=== PATIENT | female | born 1990 | race Caucasian/White ===

== ENCOUNTER 2020-05-18 13:01 | Outpatient (CLI) | payer OTHER, BC, SELFPAY ==
--- NOTE | ~2020-05-18 | XR_ITS ---
XR_CERV2-3V_CR DATE: 05/18/2020 13:51 INDICATION: Neck pain TECHNIQUE: AP, open-mouth, lateral, swimmer views COMPARISON: None FINDINGS: There is straightening of the cervical spine. C1 and C2 are normally aligned and the odonto id process is intact. No fracture or dislocation or locked facet or prevertebral soft tissue swelling is detected. The cervical interspaces appear relatively preserved. IMPRESSION: Straightening Reviewed, dictated and finalized at Location [facility]. Reviewed, dictated and finalized at location B. IMPRESSION: Straightening
--- NOTE | ~2020-05-18 | XR_ITS ---
XR lumbar spine 2-3V DATE: 05/18/2020 13:51 INDICATION: Low back pain TECHNIQUE: AP, lateral, coned lateral lumbosacral views COMPARISON: None FINDINGS: Wavy endplates of some thoracic and lumbar vertebrae, suggesting Scheuermann's disease (ado lescent kyphosis). Minimal degenerative spurring at T12-L1. There is a transitional lumbosacral presumably S1 vertebra with sacralization and pseudoarthrosis on the left. Transitional vertebra may be a source of chronic low back pain. No fracture or bone destruction or spondylolisthesis. Lumbar interspaces appear relatively preserved. The sacroiliac joints appear normal. There is a prominent amount of fecal material in the colon. 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
== END 2020-05-18 13:02 | disposition home or self-care (01) ==
LOC: CHSLAB 13:06 → CHSIMG 13:07
PROVIDERS: PCP Family Medicine; Visit Provider Family Medicine
DX: M54.2 Cervicalgia (principal); M54.5 Low back pain
CPT/HCPCS: 72040; 72100

== ENCOUNTER 2020-12-27 08:53 | Outpatient (CLI) | payer BC, SELFPAY ==
--- NOTE | ~2020-12-27 | MR_ITS ---
EXAMINATION: MR lumbar spine wo con DATE: 12/27/2020 09:30 INDICATION: Lumbar radiculopathy. TECHNIQUE: Magnetic resonance imaging (MRI) of the lumbar spine was performed without intravenous con trast. Sequences included sagittal T2-weighted FSE, sagittal T2-weighted FS FSE, sagittal T1-weighted FSE, and axial T2-weighted FSE. COMPARISON: Lumbar spine radiographs 05/18/2020 FINDINGS: There is 4 degrees levocurvature of lumbar spine. There are Schmorl's nodes at all levels. There is mildly decreased disc height at L4-L5. The distal spinal cord signal intensity is normal. Th e conus medullaris is at T12. The following disc levels are specifically discussed: L1-L2: The disc does not extend beyond the endplate margin. There is mild right facet joint osteoarth ritis. There is no neural foraminal stenosis. There is no central canal stenosis. L2-L3: The disc does not extend beyond the endplate margin. There is mild bilateral facet joint osteo arthritis. There is no neural foraminal stenosis. There is no central canal stenosis. L3-L4: The disc does not extend beyond the endplate margin. There is mild bilateral facet joint osteo arthritis. There is no neural foraminal stenosis. There is no central canal stenosis. L4-L5: The disc is bulging and has an annular fissure. There is mild bilateral facet joint osteoarthr itis. There is mild bilateral neural foraminal stenosis. There is mild central canal stenosis. L5-S1: The disc does not extend beyond the endplate margin. There is mild bilateral facet joint osteo arthritis. There is no neural foraminal stenosis. There is no central canal stenosis. IMPRESSION: 1. Mild lumbar spondylosis. Reviewed, dictated and finalized at location A. IMPRESSION: 1. Mild lumbar spondylosis.
== END 2020-12-27 08:54 ==
PROVIDERS: PCP Family Medicine; Visit Provider Family Medicine
DX: M47.27 Other spondylosis with radiculopathy, lumbosacral region (principal); M48.07 Spinal stenosis, lumbosacral region; M51.47 Schmorl's nodes, lumbosacral region
CPT/HCPCS: 72148

== ENCOUNTER 2025-01-06 00:22 | Day surgery (SDC) | payer OTHER, SELFPAY ==
[2024-12-28 13:45] VITALS: BMI 41.0
--- NOTE | 2024-12-28 13:53 | SUR.PREOP ---
Report to the Outpatient Waiting Room, entrance under the green pavilion located off [facility], at time 0900 on date 01/06/25. Planned Procedure Time: 1100. Time changes happen often and if your time is changed the preop area will call you the afternoon before. - You and your visitor will be asked to self-screen and do not enter if you have any COVID symptoms. Please call surgeon if you need to reschedule. - A mask is optional within the hospital at this time. Patients may have clear liquids (water, carbonated beverages, clear teas, apple juice) until 3 hours prior to surgery with a maximum of 20 ounces. - No food from midnight until time of surgery and no smoking, or chewing tobacco (or any form of nicotine). No chewing gum, candy or mints. - Infants may have breast milk until 4 hours before surgery, infant formula 6 hours prior to surgery. - Children will be allowed to drink immediately following surgery.? If applicable, please bring a bottle or sippy cup to assist with drinking. Juice, water, soda, and popsicles are readily available.? For infants on formula, please bring formula the day of surgery.? Pacifiers are allowed. Take only the following medications with a SIP of water on the morning of surgery: N/A DO NOT STOP ANY OF YOUR OTHER PRESCRIPTION MEDICATIONS PRIOR TO SURGERY EXCEPT THE FOLLOWING Hold all vitamins and supplements for 3 days per anesthesiologist. Medications to discontinue per physician N/A Date to take last dose Please no make-up, nail syriac, hairspray, perfume, deodorant, or body powder the day of surgery.? No jewelry (including any body piercings) or valuables the day of surgery, leave them at home.? Please take a shower or bath the night before, or the morning of, surgery with an antibacterial soap.? Wear comfortable, loose fitting clothing.? Children are encouraged to wear pajamas. - Jewelry must be removed prior to entering the operating room.? Rings and piercings that are not removed may be cut off. - The hospital will not accept responsibility for valuables.? - Please leave all valuables, including medications, at home the day of surgery. If you are going home after surgery, a licensed van driver must drive you home.? - NO public transportation without another adult if you receive anesthesia. - We recommend that an adult stay with you for 24 hours following discharge. - We also recommend that you do not drive, make important decision, drink alcoholic beverages, or take any drugs that were not prescribed by your health care provider for at least 24 hours after your discharge time. For Pediatric surgeries, we recommend two adults accompany the child home. Follow any additional instructions given to you from your surgeon. Telephone instructions given to __PATIENT__and asked if any additional questions and then verbalized understanding. Patient advised to call surgeon office or pre surgery nurse liaison [phone] if any additional questions.
[2025-01-06] VITALS (9 sets, daily range): BP systolic 109–147; BP diastolic 67–85; PULSE 48–72; RESP 14–18; TEMP 36.2; O2SAT 94–100; BMI 42.0
--- OUTSIDE RECORDS SUMMARY | 2025-01-06 00:27 | XMS_ITS | Data Portability ---
Author Organization [place] - [facility] , [facility] Address [address] [place] [address] Assessment No assessment recorded. Plan of Treatment Reminders Order Date Submit Date Provider Last Modified By Organization Details Last Modified Time Details Appointments None recorded. Lab None recorded. Referral None recorded. Procedures None recorded. Surgeries None recorded. Imaging None recorded. Medication Orders Zithromax Z-Shelton 250 mg tablet 2023 API-[id number] [facility] #[id number], [address], [place], [id number], 19:27:15 albuterol sulfate HFA 90 mcg/actuati on aerosol inhaler 2023 [facility] #[id number], [address], [place], [phone], 18:56:27 methylpredn isolone 4 mg tablets in a dose pack 2023 [id number], [address], [place], [phone], 19:27:16 Patient TargetsNo targets recorded. Patient Instructions Encounter Date Encounter Id Patient Instructions Last Modified By Organization Details Last Modified Time 09/27/2024 [id number] bronchitis: care instructions Not available 09/27/2024 18:56:20 Take meds as directed. Hydration and rest is advised. F/u with PCP/UC in 3 days if not better or sooner if worse. Not available 09/27/2024 18:56:19 Reason for Referral None Reported. Medical Equipment None Reported. Allergies No known drug allergies Medications Name Sig Start Date Stop Date Status Note LastModified by Organization Details LastModified Time Zithromax Z-Shelton 250 mg tablet TAKE 2 TABLETS (500 MG) BY ORAL ROUTE ONCE DAILY FOR 1 DAY THEN 1 TABLET (250 MG) BY ORAL ROUTE ONCE DAILY FOR 4 DAYS 2023 active [NOT TAKIN G] Not Available Not Available Not Available methylpredni solone 4 mg tablets in a dose pack Take by oral route. Day 1: 24 mg on day 1 administere d as 8 mg before breakfast, 4 mg after lunch, 4 mg after supper, and 8 mg at bedtime or 24 mg as a single dose or divided into 2 or 3 doses upon initiation (regardless of time of day). Day 2: 20 mg on day 2 administere d as 4 mg before breakfast, 4 mg after lunch, 4 mg after supper, and 8 mg at bedtime. Day 3: 16 mg on day 3 administere d as 4 mg before breakfast, 4 mg after lunch, 4 mg after supper, and 4 mg at bedtime. Day 4: 12 mg on day 4 administere d as 4 mg before breakfast, 4 mg after lunch, and 4 mg at bedtime. Day 5: 8 mg on day 5 administere d as 4 mg before breakfast and 4 mg at bedtime. Day 6: 4 mg on day 6 administere d as 4 mg before breakfast. 2023 active [NOT TAKIN G] Not Available Not Available Not Available albuterol sulfate HFA 90 mcg/actuatio n aerosol inhaler Inhale 2 puffs every 4-6 hours by inhalation route as needed, for wheezing and shortness of breath. 2023 active Not Available Not Available Not Avai lable Vitals None Recorded Social History None recorded. Functional Status None recorded. Mental Status None recorded. Family History Nothing Reported. Medical History No medical history recorded. Gynecological HistoryNo gynecological history recorded. Obstetrics History GPAL:G 0 P 0 0 0 0 Past Encounters Encounter ID Performer Location Encounter Start Date Encounter Closed Date Diagnosis/Indication Diagnosis SNOMED-CT Code Diagnosis ICD10 Code Diagnosis Note [id number] Jhony Yo DO [facility] [address] [place] [address] 09/27/2024 18:51:33 09/28/2024 00:57:19 Bronchitis [id number] J40 Sx are consistent with bronchitis and reactive airway. Health Concerns Section Related Observation LastModified by Organization Detai ls LastModified Time None Recorded Concern Status LastModified by Organization Details LastModified Time None Recorded Advance Directives Directive None Recorded Payers Encounter Date Sequence Insurance Name Policy Number Policy Mittal Covered Member ID Mittal Member ID Guarantor Name 09/27/2024 1 [facility] [id number] Eva Andre [id number] Eva Andre 09/27/2024 2 *SELF PAY* [id number] Eva Andre [id number] Eva Andre Notes Date Note Type Note Provider Name and Address Organization Details Recorded Time 09/27/2024 text/html Continuity visit , patient authentication completed during earlier visit. Limitations of telemedicine evaluations reviewed, all questions answered, and verbal consent obtained to treat via telemedicine. Clinician attests that the clinician is physically located in the following state at the time of the visit: {{ [place]#}} Patient's current location is: {{home address on file*}} (home/workplace/othe r address) in {{ [place]#}} (state) Jhony Yo DO [address] [facility] [address], [place], [address], [facility] 09/27/2024 18:59:12 OBGyn Episode No OBEpisode recorded.
--- OUTSIDE RECORDS SUMMARY | 2025-01-06 00:27 | XMS_ITS | Continuity of Care Document ---
Author Organization [facility] Address [address] [place] [address] Phone Care Team Providers Care Stave Grader Name Role Phone Ilya ALBERT, Surjit Unavailable Unavailable Procedures Procedure Date LUMBAR SPINE CT W CONTRAST INJ FOR DISKOGRAPHY, EACH LEVEL; LUMBAR INJ FOR DISKOGRAPHY, EACH LEVEL; LUMBAR INJ FOR DISKOGRAPHY, EACH LEVEL; LUMBAR DISKOGRAPHY, LUMBAR, RADIOLOGICAL SUPERV ISION AND INTERPRETATION SURGICAL TRAY LOW OSMOLAR CONTRAST (200 TO 299 MG IODI NE) Advance Directives Directive Yes / No Effective Date File Name No Information Encounters Encounter Description Practice Location Reason(s) For Visit Diagnoses Date Provider Providers Copied on Encounter [facility], [address], [place], [place], [id number], [place] tel:[phone] [facility] No Information Ilya Eddy. [address] , [place], [place], [id number], [place]. tel:[phone] Referring Provider: Ivan Chong, [address] [facility] [address], [place], [address]. tel:[phone] Family History Family Member Type Diagnosis Age At Onset No Information Payers Payer name Insurance type Covered republican ID Authoriza tion(s) BS ACCESS BL [id number] Social History Type Description Quantity Date Captured Comments Sex Female Smoking Status No Information Chief Complaint And Reason For Visit No Information Reason For Referral Reason For Referral No Information History Of Present Illness Encounter Date Complaint History Of Prese nt Illness No Information Functional Status Date Functional Assessmen t No Information Instructions Date Instruction Additional Infor mation No Information Assessments Type Assessment Date No Information Patient Care Teams Name Effective Dates (start - stop) Status Members No Information
[2025-01-06 10:10] LABS: BEDSIDEPREGUCG Negative (Negative)
[2025-01-06] MEDS: LACTATED RINGERS 1,000 ML 30 ML IV CONT (10:40)
[2025-01-06] MEDS: ACETAMINOPHEN 500 MG TABLET 1000 MG PO (10:41)
[2025-01-06] MEDS: KETOROLAC 15 MG/ML VIAL (*BKC) IV PUSH (10:41)
--- NOTE | 2025-01-06 11:06 | WPDHPUPDATE1 ---
History and Physical Update Update Date/Time: 01/06/25 11:06 History and Physical has been reviewed, including an updated exam of the patient. There are NO changes in the patient's condition. Risks, benefits, and alternatives have been discussed and questions answered. Patient agrees to proceed with procedure.
--- NOTE | 2025-01-06 11:29 | WPDANESEPPF ---
Anes - Initial Pre Proc Eval Procedure: Operation Date: 01/06/25 11:00 Proposed Procedures p Laparoscopic Bilateral Salpingectomy - Momo Delacruz MD Date/Time: 01/06/25 11:29 Surgeon: Momo Delacruz MD Pre Op Diagnosis: Vol Sterilization Patient Data Age: 34 Gender: F Height: 1.73 m Weight: 125.6 kg Last Vital Signs Temp 97.1 F L 01/06/25 10:06 Pulse 63 01/06/25 10:06 BP 147/85 H 01/06/25 10:06 Pulse Ox 99 01/06/25 10:06 O2 Del Method Room Air 01/06/25 10:06 Allergies Allergy/AdvReac Type Severity Reaction Status Date / Time No Known Allergies Allergy Verified 01/06/25 10:05 Home Medications ?Medication ?Instructions ?Recorded ?Confirmed ?Type montelukast 10 mg tablet 10 mg PO DAILY 05/29/21 12/29/24 History (Singulair) loratadine 10 mg tablet 10 mg PO DAILY 06/07/22 12/29/24 History Laboratory Tests 01/06/25 10:06 POC Urine HCG, Qual Negative (Negative) Patient hx anesthesia problems: none Family hx anesthesia problems: none Results Review: All pre-operative results and documents have been reviewed as part of the pre-operative evaluation. [facility] Past Medical History Medical History Frequent headaches Hx of migraine headaches Seasonal allergies Surgical History Surgical History H/O hand surgery [place] teeth removed Family History Family History Father Alcoholism Asthma Sibling Depression Grandparent Diabetes mellitus Hypertension Heart disease Social History Social History Years smoked: 4 Smoking status: Current every day smoker Tobacco type: cigarettes Alcohol intake: current Substance use: never Living arrangements: with family Anes - Eval Final PreProcedure Day of Procedure 01/06/25 11:29 Patient weight: normal and morbidly obese Heart: regular rate and rhythm Lungs: clear to auscultation Airway: Mallampati scale class III Neurological: alert and oriented Last oral intake: >/= 8 hours ASA classification: III Emergent: no Anesthetic plan: proceed Anesthesia type and monitoring: general ETT and standard monitoring Results Review: All pre-operative results and documents have been reviewed as part of the pre-operative evaluation. Informed Consent: The patient's anesthetic plan and its attendant risks and benefits were discussed with the patient/family/POA. Questions were solicited and answers provided to the satisfaction of the patient/family/POA.
--- NOTE | 2025-01-06 12:37 | W.PM.PROC2 ---
Procedure Note - Detailed Date of Procedure 01/06/25 Pre-op Diagnosis Requests sterilization Post-op Diagnosis Same Procedure Performed 1. Laparoscopic bilateral salpingectomy 2. IUD removal Surgeon Momo Delacruz MD Anesthesia General Indications Undesired fertility, desires removal of IUD. Findings Normal uterus and fallopian tubes and ovaries. Normal appearing IUD. Description of Procedure After informed consent was obtained patient was taken to the operating room and general endotracheal anesthesia was administered. She was placed in low lithotomy need prep prepped sterile fashion. Attention was turned to the vagina speculum inserted. IUD removed with ring forceps intact. A single-tooth tenaculum placed on anterior lip of the cervix. [place] uterine manipulator placed into the cervical canal. The speculum was removed. Attention was then turned to the abdomen. A vertical incision was made at the umbilicus and a Veress needle was inserted into the abdomen confirmation into the abdomen obtained with free flow of fluid and normal peritoneal pressures. A pneumoperitoneum of 15 mm per mercury was obtained. The 5 mm port was inserted under laparoscopic visualization. Patient was placed in Trendelenburg position. Attention was turned to the left side of the abdomen and a 5 mm port was inserted under laparoscopic visualization. The pelvic organs were visualized. Using the LigaSure the right fallopian tube was excised to near the entrance to the uterus. This was removed through the port in multiple sections. Attention was then turned to the left fallopian tube which was grabbed at the distal end and cauterized from the mesial salpinx to near the entrance to the entrance to the uterus. The fallopian tube was removed in multiple sections through the 5 mm port. Hemostasis was noted at both sites. Patient was taken out of Trendelenburg position the pneumoperitoneum was released and the skin incisions were closed in a subcuticular fashion with 4 O Vicryl. Single tooth tenaculum removed. Estimated Blood Loss 5 Drains No Packing No Pathology Yes (segments of right and left fallopian tubes.) Complications No immediate complications Condition Stable Disposition Same day [facility] Billing Surgery - Charge Forward: Surgery Billing
--- NOTE | 2025-01-06 13:59 | SUR.PHASEII ---
[facility] office notified - need orders for discharge
== END 2025-01-06 14:48 | disposition home or self-care (01) ==
PROVIDERS: PCP Family Medicine; Visit Provider Obstetrics & Gynecology
PROC: (CPT 49320; principal; 2025-01-06 11:00)
DX: Z30.2 Encounter for sterilization (principal); G89.18 Other acute postprocedural pain; F17.210 Nicotine dependence, cigarettes, uncomplicated; E66.01 Morbid (severe) obesity due to excess calories; Z68.41 Body mass index [BMI] 40.0-44.9, adult; Z98.890 Other specified postprocedural states; Z82.49 Family history of ischemic heart disease and other diseases of the circulatory system
CPT/HCPCS: 58661; 58579; 88302; A9270; J1100; J1885; J2003; J2250; J2405; J2704; J3010; J7120

== ENCOUNTER 2025-01-13 12:17 | Emergency (ER) | payer OTHER, SELFPAY ==
[2025-01-13 12:19] VITALS: BP 158/99; PULSE 66; RESP 18; TEMP 36.6; O2SAT 95
--- NOTE | 2025-01-13 12:19 | ED_ITS ---
HPI - General Adult General Chief complaint: Anxiety Stated complaint: high blood pressure Time Seen by Provider: 01/13/25 12:19 Source: patient Mode of arrival: ambulatory Limitations: no limitations History of Present Illness HPI narrative: 33-year-old female, smoker with a history of migraine had tubal ligation last week. She presents to the ED with -- high blood pressure. she was noted to have a high blood pressure at home. Currently she presents with a blood pressure of 158/99. -- dizziness- Patient feels lightheaded -- nausea without any vomiting. No abdominal pain. No diarrhea. -- hot flashes Onset (ago): week(s) ( One week) Relieving factors: none Exacerbating factors: none Associated symptoms: nausea/vomiting and weakness Treatments prior to arrival: NSAID Related Data Home Medications ?Medication ?Instructions ?Recorded ?Confirmed ?Last Taken ?Type montelukast 10 mg tablet 10 mg PO DAILY 05/29/21 12/29/24 Unknown History (Singulair) loratadine 10 mg tablet 10 mg PO DAILY 06/07/22 12/29/24 Unknown History Allergies Allergy/AdvReac Type Severity Reaction Status Date / Time No Known Allergies Allergy Verified 01/13/25 12:23 Review of Systems 2 Review of Systems: All systems reviewed & are unremarkable except as noted in HPI and below Constitutional: Constitutional: Reports as per HPI, Reports no additional constitutional complaints and Reports weakness Eyes: Eyes: Reports as per HPI and Reports no additional eye complaints ENT: Reports system reviewed and no additional complaints, except as documented and Reports as per HPI Cardiovascular: Cardiovascular: Reports as per HPI and Reports no additional cardiovascular complaints Respiratory: Respiratory: Reports as per HPI and Reports no additional respiratory complaints Gastrointestinal: Gastrointestinal: Reports as per HPI, Reports no additional gastrointestinal complaints and Reports nausea Genitourinary: Genitourinary: Reports no additional female genitourinary complaints and Reports as per HPI Musculoskeletal: Musculoskeletal: Reports no additional musculoskeletal complaints and Reports as per HPI Integumentary/Breasts: Skin/Breast: Reports system reviewed and no additional complaints, except as docu Comments: bruising around her incision site in the abdomen and right forearm Neurologic: Reports system reviewed and no additional complaints, except as documented and Reports as per HPI Psychiatric: Psychiatric: Reports no additional psychiatric complaints and Reports as per HPI Endocrine: Endocrine: Reports no additional endocrine complaints and Reports as per HPI Hematologic/Lymphatic: Hematologic/Lymphatic: Reports no additional hematologic/lymphatic complaints and Reports as per HPI Allergic/Immunologic: Allergic/Immunologic: Reports no additional allergic/immunologic complaints and Reports as per HPI [facility] Past Medical History Medical History Frequent headaches Hx of migraine headaches Seasonal allergies Surgical History Surgical History H/O hand surgery [place] teeth removed Family History Family History Father Alcoholism Asthma Sibling Depression Grandparent Diabetes mellitus Hypertension Heart disease Social History Social History Years smoked: 4 Smoking status: Current every day smoker Tobacco type: cigarettes Alcohol intake: current Substance use: never Living arrangements: with family Exam 2 Narrative: blood pressure is 158/99. Const: General: healthy appearing and no acute distress O rientation/consciousness: patient oriented x3 Limitations: no limitations HENMT: Head: normal to inspection Ears: external ears normal F galen/Nose/Sinus: Normal external nose present Face and sinus: normal facial exam Mouth: Yes Normal oral and palatal mucosa present Throat: posterior oropharynx normal Eyes: Conjunctivae: conjunctivae normal Pupils: Equal, round and reactive pupils present EOM: EOMs intact bilaterally Direct Ophthalmoscopy: no photophobia Neck: Neck: normal visual inspection, no lymphadenopathy and no meningeal signs Chest: Chest palpation & inspection: normal inspection of the chest and abnormal inspection of the chest Resp: Effort & Inspection: normal respiratory effort Auscultation: clear to auscultation bilaterally Cardio: Rate: regular rate Rhythm: regular rhythm GI: GI Palp: Yes Soft to palpation Auscultation: normal bowel sounds O ther: No tenderness/rigidity / rebound. Extensive cutaneous bruising : General: Yes no CVA tenderness Back/Spine/Pelvis: Back: no CVA tenderness Skin: General skin exam: normal color Other: bruising over the abdominal wall and the right forearm. Neuro: General: patient oriented x3, moves all extremities, no meningeal signs, no focal motor deficits and CN's II-XI intact bilaterally Cranial nerves: Yes Nystagmus not present Speech: normal speech Gait exam (Neuro): Normal gait present Extrem: General: normal to inspection and no clubbing, cyanosis or edema Psych: Mental Status: mental status grossly normal Affect: normal affect Attitude: cooperative Course Course Emergency Course: Dizziness-- No focal neuro deficits noted.Patient is noted to have elevated H&H Which could be suggestive of dehydration. She has had decreased oral intake for the past few days after tube ligation 1 week ago. hypertension-- Blood pressure is noted to be 158/99. Repeat blood pressures were noted to be 140/78. patient is not orthostatic polycythemia- patient has a hemoglobin of 7/50. Advised her to repeat an H&H. This appears to be secondary to dehydration. Vital Signs Vital signs: Vital Signs Temperature 36.6 C 01/13/25 12:19 Pulse Rate 66 01/13/25 12:19 Respiratory Rate 18 01/13/25 12:19 Blood Pressure 158/99 H 01/13/25 12:19 Pulse Oximetry 95 01/13/25 12:19 Oxygen Delivery Room Air 01/13/25 12:19 Temperature 36.6 C 01/13/25 12:19 Pulse Rate 86 01/13/25 14:20 Respiratory Rate 18 01/13/25 12:19 Blood Pressure 144/78 H 01/13/25 14:20 Pulse Oximetry 95 01/13/25 12:19 Oxygen Delivery Room Air 01/13/25 12:19 Medical Decision Making [facility] Narrative Medical decision making narrative: Dizziness intermittent hypertension polycythemia Differential Diagnosis Differential Diagnosis: deconditioning Vital Signs Vital Signs: Vital Signs Temperature 36.6 C 01/13/25 12:19 Pulse Rate 66 01/13/25 12:19 Respiratory Rate 18 01/13/25 12:19 Blood Pressure 158/99 H 01/13/25 12:19 Pulse Oximetry 95 01/13/25 12:19 Oxygen Delivery Room Air 01/13/25 12:19 Temperature 36.6 C 01/13/25 12:19 Pulse Rate 86 01/13/25 14:20 Respiratory Rate 18 01/13/25 12:19 Blood Pressure 144/78 H 01/13/25 14:20 Pulse Oximetry 95 01/13/25 12:19 Oxygen Delivery Room Air 01/13/25 12:19 Lab Data 01/13/25 12:43 01/13/25 12:43 Labs: Lab Results 01/13/25 Range/Units 12:43 WBC 13.0 H (4.8-10.8) K/mm3 RBC 5.94 H (4.20-5.40) M/mm3 Hgb 17.1 H (12.0-15.0) g/dL Hct 50.2 H (35.0-49.0) % MCV 84.5 (78.0-102.0) fL MCH 28.8 (27.0-31.0) pg MCHC 34.1 (32-36) g/dL RDW 12.0 (11.6-14.4) % Plt Count 329 (150-420) K/mm3 MPV 9.3 (9.2-11.8) fl Immature Gran % (Auto) 0.5 H (0.0-0.0) % Neut % (Auto) 78.0 H (50.0-70.0) % Lymph % (Auto) 16.6 L (18.0-42.0) % Dolores % (Auto) 4.3 (2.0-11.0) % Eos % (Auto) 0.3 L (1.0-6.0) % Baso % (Auto) 0.3 (0.0-1.0) % Lymph # (Auto) 2.16 (1.10-4.50) K/mm3 Dolores # (Auto) 0.56 (0.10-0.90) K/mm3 Eos # (Auto) 0.04 (0.02-0.50) K/mm3 Baso # (Auto) 0.04 (0.00-0.10) K/mm3 Abs Immat Gran (auto) 0.06 H (0.00-0.00) K/mm3 Absolute Neuts (auto) 10.15 H (1.70-7.20) K/mm3 Absolute Nucleated RBC 0.00 (0.00-0.00) K/mm3 Nucleated RBC % 0.0 (0-0.0) % Sodium 138 (136-145) mmol/L Potassium 3.7 (3.5-5.1) mmol/L Chloride 100 (98-108) mmol/L Carbon Dioxide 26 (21-32) mmol/L Anion Gap 12 (4-12) mmol/L BUN 10 (7-18) mg/dL Creatinine 0.91 (0.55-1.02) mg/dL Estim Creat Clear Calc 106 ml/min Estimated GFR > 60 (59 - ) Glucose 95 (70-99) mg/dL Calculated Osmolality 285 (285-295) mOsm/kg Lactic Acid 1.1 (0.4-2.0) mmol/L Calcium 9.6 (8.5-10.1) mg/dL Total Bilirubin 0.7 (0.00-1.00) mg/dL AST 29 (15-37) U/L ALT 59 (14-59) U/L Alkaline Phosphatase 78 (46-116) U/L Troponin I < 4.0 (0.00-60.4) ng/L Total Protein 8.2 (6.4-8.2) g/dL Albumin 4.2 (3.4-5.0) g/dL TSH 1.00 (0.36-3.74) uIU/mL Urine Color Dark yellow (Yellow) Urine Appearance Clear (Clear) Urine pH 6.0 (5.0-8.0) Ur Specific [place] 1.015 (1.010-1.020) Urine Protein Negative (Negative) Urine Glucose (UA) Negative (Negative) Urine Ketones 3+ H (Negative) Ur Blood (Man) 3+ H (Negative) Urine Nitrate Negative (Negative) Urine Bilirubin 1+ H (Negative) Urine Urobilinogen 0.2 (0.2-1.0) mg/dL Leukocyte Esterase Rfl 1+ H (Negative) DENTON/UL Urine RBC 11-20 H (0-2) /hpf Urine WBC 7-9 H (0-3) /hpf Ur Squamous Epith Cells Many H (Few) /hpf Urine Bacteria 3+ H (None) /hpf Urine Mucus Rare /lpf ECG Data EKG #1: ECG completion date: 02/17/25 ECG completion time: 12:43 Interpretation: sinus bradycardia with a heart rate of 58. Normal axis. No ST-T wave changes noted. Discharge Plan Discharge Clinical Impression: Dizziness, Polycythemia Patient Disposition: Home, Self-Care Condition: Stable Instructions: Antibiotic Form, Hypertension (ED), Dizziness (ED) Patient Language: Hungarian Prescriptions: No Action montelukast [Singulair] 10 mg tablet 10 mg PO DAILY Patient Comments: takes in afternoon loratadine 10 mg tablet 10 mg PO DAILY Patient Comments: takes in afternoon hydrocodone-acetaminophen 5-325 mg tablet 1 tablet PO Q4H PRN (Reason: pain) Qty: 14 0RF Follow-up/Referrals: Joao Hernandez MD [Primary Care Provider] - Time of Disposition: 14:21
--- NOTE | 2025-01-13 12:32 | ECG_ITS ---
Test Date: 2025-01-13 12:43:41 Measurements Intervals [place] Rate: 58 P: 22 ND: 121 QRS: 52 QRSD: 94 T: 32 QT: 396 QTc: 392 Interpretive Statements SINUS BRADYCARDIA MINIMAL Q WAVES- INF/LAT LEADS BORDERLINE ECG No previous ECG available for comparison Electronically Signed On 01-13-2025 12:57:39 CDT by Jose Martin Del Castillo D.O.
[2025-01-13 12:58] LABS: Basophils Absolute Auto 0.04 K/mm3 (0.00-0.10); Basophils Percent Auto 0.3 % (0.0-1.0); Eosinophils Absolute Auto 0.04 K/mm3 (0.02-0.50); Eosinophils Percent Auto 0.3 % (1.0-6.0); Hematocrit 50.2 % (35.0-49.0); Hemoglobin 17.1 g/dL (12.0-15.0); Immature Granulocyte Absolute 0.06 K/mm3 (0.00-0.00); Immature Granulocyte Percent A 0.5 % (0.0-0.0); Lymphocytes Absolute Auto 2.16 K/mm3 (1.10-4.50); Lymphocytes Percent Auto 16.6 % (18.0-42.0); Mean Corpuscular HGB Conc 34.1 g/dL (32-36); Mean Corpuscular Hemoglobin 28.8 pg (27.0-31.0); Mean Corpuscular Volume 84.5 fL (78.0-102.0); Mean Platelet Volume 9.3 fl (9.2-11.8); Monocytes Absolute Auto 0.56 K/mm3 (0.10-0.90); Monocytes Percent Auto 4.3 % (2.0-11.0); Neutrophils Absolute Auto 10.15 K/mm3 (1.70-7.20); Platelet Count Result 329 K/mm3 (150-420); Red Blood Count 5.94 M/mm3 (4.20-5.40)
[2025-01-13 13:01] LABS: Add Urine Microscopic? YES; Appearance Urine Clear (Clear); Bilirubin Urine 1+ (Negative); Blood Urine 3+ (Negative); Color Urine Dark Yellow (Yellow); Glucose Urine UA Negative (Negative); Ketones Urine 3+ (Negative); Leukocyte Esterase Ur 1+ LEU/UL (Negative); Nitrate Urine Negative (Negative); Protein Urine Negative (Negative); Specific Grav Ur 1.015 (1.010-1.020); Urobilinogen Urine 0.2 mg/dL (0.2-1.0)
[2025-01-13 13:15] LABS: Bacteria Urine 3+ /hpf; Squamous Epithelial Cell Urine Many /hpf (Few)
[2025-01-13 13:16] LABS: Mucus Urine Rare /lpf
[2025-01-13 13:22] LABS: Lactic Acid Reflex 1.1 mmol/L (0.4-2.0)
[2025-01-13 13:28] LABS: Alanine Aminotransferase 59 U/L (14-59); Albumin Level 4.2 g/dL (3.4-5.0); Alkaline Phosphatase 78 U/L (46-116); Anion Gap 12 mmol/L (4-12); Aspartate Amino Transferase 29 U/L (15-37); Bilirubin,Total 0.7 mg/dL (0.00-1.00); Blood Urea Nitrogen 10 mg/dL (7-18); Calcium 9.6 mg/dL (8.5-10.1); Carbon Dioxide 26 mmol/L (21-32); Chloride 100 mmol/L (98-108); Estimated CRCL calculation 106 ml/min; Estimated Glomerular Filt Rate > 60; Glucose 95 mg/dL (70-99); Osmolality Calculated 285 mOsm/kg (285-295); Potassium 3.7 mmol/L (3.5-5.1); Sodium 138 mmol/L (136-145); Total Protein 8.2 g/dL (6.4-8.2)
[2025-01-13 13:34] LABS: Troponin I < 4.0 ng/L (0.00-60.4)
--- OUTSIDE RECORDS SUMMARY | 2025-01-13 13:34 | XMS_ITS | Data Portability ---
Author Organization [place] - [facility] , [facility] Address [address] [place] [address] Assessment No assessment recorded. Plan of Treatment Reminders Order Date Submit Date Provider Last Modified By Organization Details Last Modified Time Details Appointments None recorded. Lab None recorded. Referral None recorded. Procedures None recorded. Surgeries None recorded. Imaging None recorded. Medication Orders Zithromax Z-Shelton 250 mg tablet 2023 [id number] [facility] #[id number], [address], [place], [id number], 19:27:15 albuterol sulfate HFA 90 mcg/actuati on aerosol inhaler 2023 [facility] #[id number], [address], [place], [id number], 18:56:27 methylpredn isolone 4 mg tablets in a dose pack 2023 [id number], [address], [place], [id number], 19:27:16 Patient TargetsNo targets recorded. Patient Instructions Encounter Date Encounter Id Patient Instructions Last Modified By Organization Details Last Modified Time 09/27/2024 [id number] bronchitis: care instructions Not available 09/27/2024 18:56:20 [...] SNOMED-CT Code Diagnosis ICD10 Code Diagnosis Note [id number] Jhony Yo DO [facility] [address] [address] 09/27/2024 18:51:33 09/28/2024 00:57:19 Bronchitis 84681101 J40 Sx are consistent with bronchitis and reactive airway. Health Concerns Section Related Observation LastModified by Organization Detai ls LastModified Time None Recorded Concern Status LastModified by Organization Details LastModified Time None Recorded Advance Directives Directive None Recorded Payers Encounter Date Sequence Insurance Name Policy Number Policy Mittal Covered Member ID Mittal Member ID Guarantor Name 09/27/2024 1 [facility] [id number] Eva Andre [id number] Eva Andre 09/27/2024 2 *SELF PAY* [id number] Eva Andre [id number] Eva Andre Notes Date Note Type Note [...] {{ [place]#}} (state) Jhony Yo DO 1 [facility] [address], [place], [address], [facility] 09/27/2024 18:59:12 OBGyn Episode No OBEpisode recorded.
--- OUTSIDE RECORDS SUMMARY | 2025-01-13 13:34 | XMS_ITS | Continuity of Care Document ---
Author Organization [facility] Address [address] [place] [address] Phone Care Team Providers Care Frame Cleaner Name Role Phone Ilya ALBERT, Surjit Unavailable [...] Diagnoses Date Provider Providers Copied on Encounter [facility], [address], [place], [place], [address], [place] tel:[phone] [facility] No Information Ilya Eddy. [address] , [place], [place], [address], [place]. tel:[phone] Referring Provider: Ivan Chong, [address] [facility] [address], [place], [address]. tel:[phone] Family History Family Member Type Diagnosis Age At Onset No Information Payers Payer name Insurance type Covered libertarian ID Authoriza tion(s) BS ACCESS BL [id number] Social History Type Description Quantity Date Captured [...]
[2025-01-13 14:19] VITALS: BP 149/80; PULSE 58
[2025-01-13 14:20] VITALS: BP 144/78; PULSE 86
[2025-01-13] MEDS: LACTATED RINGERS 1,000 ML 999 ML IV CONT (14:37)
--- OUTSIDE RECORDS SUMMARY | 2025-01-13 14:37 | XMS_ITS | Continuity of Care Document ---
Author Organization [facility] Address [address] [place] [address] Phone Care Team Providers Care Adult Remedial Education Instructor Name Role Phone Ilya ALBERT, uSrjit Unavailable Unavailable Procedures Procedure Date LUMBAR SPINE [...] Diagnoses Date Provider Providers Copied on Encounter [facility], [address], [place], [place], [address], [place] tel:[phone] [facility] No Information Ilya Eddy. [address] , [place], [place], [address], [place]. tel:[phone] Referring Provider: Ivan Chong, [address] [facility] [address], [place], [address]. tel:[phone] Family History Family Member Type Diagnosis Age At Onset No Information Payers Payer name Insurance type Covered republican ID Authoriza tion(s) BS ACCESS BL [id number] Social History Type Description Quantity Date Captured [...]
[2025-01-13] MEDS: ONDANSETRON INJ 4 MG/2 ML VIAL IV PUSH (14:38)
[2025-01-13 15:32] VITALS: BP 129/78; PULSE 78; RESP 18; TEMP 36.6; O2SAT 99
--- NOTE | 2025-01-13 15:35 | PC.NURSE ---
On 01/13/25, the student, [shay ivan ], provided care and completed [facility] documentation on this patient. I have reviewed the student's documentation and agree with the findings.
== END 2025-01-13 15:13 | disposition home or self-care (01) ==
PROVIDERS: Emergency Provider Internal Medicine Critical Care Medicine; PCP Family Medicine
DX: R42 Dizziness and giddiness (principal); D75.1 Secondary polycythemia; F17.210 Nicotine dependence, cigarettes, uncomplicated
CPT/HCPCS: 36415; 80053; 81001; 83605; 84443; 84484; 85025; 93005; 96361; 96374; 99284; J2405; J7120

== ENCOUNTER 2025-02-13 09:51 | Outpatient (CLI) | payer OTHER, SELFPAY ==
--- NOTE | ~2025-02-13 | MR_ITS ---
EXAMINATION: MR brain/brain stem wo con DATE: 02/13/2025 10:21 INDICATION: Headache, tinnitus and vertigo for 3 weeks TECHNIQUE: Magnetic resonance imaging (MRI) of the brain and brainstem was performed without intraven ous contrast. Sequences included sagittal and axial T1-weighted SE, axial diffusion-weighted FS SE, a xial T2*-weighted GRE, axial T2-weighted FLAIR, and axial T2-weighted FSE. Postcontrast axial and cor onal T1-weighted SE was obtained. Apparent diffusion coefficient (ADC) maps were created. COMPARISON: None. FINDINGS: There are no areas of restricted diffusion to suggest acute infarction. No intracranial hemorrhage or abnormal intracranial mass lesion. There are no intraparenchymal signal abnormalities seen on the ot her pulse sequences. The ventricles are symmetric and normal in size. There are no abnormal extra-axi al fluid collections. Flow voids are seen in the cerebral arteries on the T2-weighted sequences consi stent with their expected patency. Visualized orbits and soft tissues are unremarkable. IMPRESSION: 1. Normal brain MR. Reviewed, dictated and finalized at location A. IMPRESSION: 1. Normal brain MR.
--- OUTSIDE RECORDS SUMMARY | 2025-02-13 16:13 | XMS_ITS | Data Portability ---
Author Organization [place] - [facility] , [facility] Address [address] [place] [address] Assessment No assessment recorded. Plan of Treatment Reminders Order Date Submit Date Provider Last Modified By Organization Details Last Modified Time Details Appointments None recorded. Lab None recorded. Referral None recorded. Procedures None recorded. Surgeries None recorded. Imaging None recorded. Medication Orders Zithromax Z-Shelton 250 mg tablet 2023 [id number] [facility] #[id number], [address] [place], [place], [id number], 19:27:15 albuterol sulfate HFA 90 mcg/actuati on aerosol inhaler 2023 [facility] #[id number], [address] [place], [place], [id number], 18:56:27 methylpredn isolone 4 mg tablets in a dose pack 2023 [id number], [address] [place], [place], [id number], 19:27:16 Patient TargetsNo targets recorded. Patient Instructions Encounter Date Encounter Id Patient Instructions Last Modified By Organization Details Last Modified Time 09/27/2024 [id number] bronchitis: care instructions Not available 09/27/2024 18:56:20 [...] SNOMED-CT Code Diagnosis ICD10 Code Diagnosis Note [id number] Jhony Yo DO [facility] [address] [place] [address] 09/27/2024 18:51:33 09/28/2024 00:57:19 Bronchitis [id number] J40 Sx are consistent with bronchitis and reactive airway. Health Concerns Section Related Observation LastModified by Organization Detai ls LastModified Time None Recorded Concern Status LastModified by Organization Details LastModified Time None Recorded Advance Directives Directive None Recorded Payers Encounter Date Sequence Insurance Name Policy Number Policy Mittal Covered Member ID Mittal Member ID Guarantor Name 09/27/2024 1 [facility] [id number] Eva Andre [id number] Eva Andre 09/27/2024 2 *SELF PAY* [id number] Eva Andre [id number] Eva Andre Notes Date Note Type Note [...] {{ [place]#}} (state) Jhony Yo DO 1 [facility] [address], [place], [address], [facility] 09/27/2024 18:59:12 OBGyn Episode No OBEpisode recorded.
== END 2025-02-13 09:52 | disposition home or self-care (01) ==
LOC: CHSIMG 09:53
PROVIDERS: PCP Family Medicine; Visit Provider Family Medicine
DX: R51.0 Headache with orthostatic component, not elsewhere classified (principal); H93.19 Tinnitus, unspecified ear; H81.4 Vertigo of central origin
CPT/HCPCS: 70551